=== PATIENT | female | born 1960 | race African-American/Black ===

== ENCOUNTER 2017-03-08 11:03 | Emergency (ER) | payer SELFPAY ==
[~2017-03-08] VITALS: Ht 172.7 cm; Wt 41.3 kg
[2017-03-08 12:26] VITALS: BP 143/95
== END 2017-03-08 12:36 | disposition home or self-care (01) ==
LOC: ER 11:03
DX: J20.9 Acute bronchitis, unspecified (principal)
CPT/HCPCS: 71046; 93005

== ENCOUNTER 2017-03-14 11:41 | Inpatient (IN) | payer SELFPAY ==
[~2017-03-14] VITALS: Ht 167.6 cm; Wt 44.8 kg
[2017-03-14 12:56] LABS: Basophils # (auto) 0.1 uL; Basophils % (auto) 0.6 % (0.0-2.0); Eosinophils # (auto) 0 uL; Eosinophils % (auto) 0.4 % (0.0-7.0); Hematocrit 42.8 % (36.0-46.0); Hemoglobin 14.2 g/dL (12.2-16.2); Lymphocytes # (auto) 0.8 uL; Lymphocytes % (auto) 7.3 % (10.0-50.0); Mean Corpuscular Hemoglobin 29.8 pg (28.0-32.0); Mean Corpuscular Hgb Conc. 33.2 g/dL (32.0-36.0); Mean Corpuscular Volume 89.6 fL (80.0-100.0); Monocytes # (auto) 0.5 uL; Monocytes % (auto) 4.4 % (0.0-12.0); Neutrophils # (auto) 9.5 uL; Neutrophils % (auto) 87.3 % (37.0-80.0); Nucleated Red Blood Cells % 0.1 %; Platelet Count (auto) 380 10^3/uL (140-450); Red Blood Cells 4.78 10^6/uL (4.0-5.20); Red Cell Distribution Width 12.7 % (11.8-14.3); White Blood Cell 10.9 10^3/uL (4.4-10.8)
[2017-03-14 13:34] LABS: Albumin 2.8 g/dL (3.4-5.0); BUN/Creatinine Ratio 13.9; Bilirubin, Total 0.3 mg/dL (0.2-1.0); Calcium 9.1 mg/dL (8.5-10.1); Potassium 3.4 mmol/L (3.5-5.1); Total Protein 7.7 g/dL (6.4-8.2)
[2017-03-14] MEDS ORDERED: SODIUM CHLORIDE 0.9% 1,000 ML IV ONE (15:07)
[2017-03-14] MEDS ORDERED: InsuLIN REG 1unit/0.01ml Soln (100units/ml) IV ONE (15:15)
[2017-03-14] MEDS: SODIUM CHLORIDE 0.9% 1,000 ML IV SCH ×2 (15:15→23:24)
[2017-03-14 16:07] LABS: Urine Bacteria NONE SEEN /hpf (None Seen); Urine Blood Negative /uL (Negative); Urine Specific Gravity 1.037 (1.001-1.035); Urine WBC 6 /hpf (0 - 5)
[2017-03-14] MEDS ORDERED: DEXTROSE (50%) 50ML SYRG IV PRN (16:45)
[2017-03-14] MEDS ORDERED: NITROGLYCERIN 0.4 MG SL TAB SL PRN (16:45)
[2017-03-14] MEDS ORDERED: LORazepam 0.5 MG TAB PO PRN (16:45)
[2017-03-14] MEDS ORDERED: HYDROcodone-ACET 5/325MG TAB PO PRN (16:45)
[2017-03-14] MEDS ORDERED: cefTRIAXone 1GM/10ml IVPUSH 10 ML IV ONE (16:45)
[2017-03-14] MEDS ORDERED: MORPHINE SULF INJ 2 MG/ML SYRINGE 1ML IV PRN ×2 (16:45)
[2017-03-14] MEDS ORDERED: PROMETHAZINE HCL 25 MG/ML 1ML IV PRN (16:45)
[2017-03-14] MEDS ORDERED: ACETAMINOPHEN 500 MG TAB PO PRN (16:45)
[2017-03-14] MEDS ORDERED: TEMAZEPAM 15 MG CAP PO PRN (16:45)
[2017-03-14 17:40] LABS: Alcohol, Urine < 3.0 mg/dL (0-5); Amphetamine Screen, Urine NEGATIVE (NEGATIVE); Barbiturate Scree,Urine NEGATIVE (NEGATIVE); Benzodiazephine Screen, Urine NEGATIVE (NEGATIVE); Cannabinoid Screen, Urine NEGATIVE (NEGATIVE); Cocaine Screen, Urine NEGATIVE (NEGATIVE); Opiate Scree,Urine NEGATIVE (NEGATIVE); Phencyclidine Screen, Urine NEGATIVE (NEGATIVE)
[2017-03-14] MEDS ORDERED: LABETALOL HCL 5 MG/ML ML 20ML VIAL IV PRN (18:00)
[2017-03-14] MEDS ORDERED: METOPROLOL TARTRATE 25 MG TAB PO ONE (18:00)
[2017-03-14 19:00] LABS: Amylase 56 U/L (25-115); Lipase 196 U/L (73-393)
[2017-03-14] MEDS: LABETALOL HCL 5 MG/ML ML 20ML VIAL IV PRN (19:48)
[2017-03-14] MEDS: ACCU-CHEK COMFORT CURVE STRIP VI SCH (20:00)
[2017-03-14] MEDS: InsuLIN REG 1unit/0.01ml Soln (100units/ml) SC SCH (20:00)
[2017-03-14 21:19] VITALS: BP 183/104
[2017-03-14] MEDS ORDERED: METOPROLOL TARTRATE 25 MG TAB PO SCH (22:00)
[2017-03-14] MEDS: METOPROLOL TARTRATE 25 MG TAB PO SCH (22:24)
[2017-03-14 22:38] VITALS: BP 183/104
[2017-03-15] VITALS (7 sets, daily range): BP systolic 147–162; BP diastolic 80–86
[2017-03-15] MEDS: LABETALOL HCL 5 MG/ML ML 20ML VIAL IV PRN ×2 (01:03→04:31)
[2017-03-15] MEDS: ACCU-CHEK COMFORT CURVE STRIP VI SCH ×5 (04:00→17:16)
[2017-03-15] MEDS: InsuLIN REG 1unit/0.01ml Soln (100units/ml) SC SCH ×5 (04:00→17:24)
[2017-03-15] MEDS: SODIUM CHLORIDE 0.9% 1,000 ML IV SCH ×3 (06:04→19:24)
[2017-03-15 06:29] LABS: Basophils # (auto) 0 uL; Basophils % (auto) 0.5 % (0.0-2.0); Eosinophils # (auto) 0.1 uL; Eosinophils % (auto) 1.3 % (0.0-7.0); Hematocrit 34.4 % (36.0-46.0); Hemoglobin 11.8 g/dL (12.2-16.2); Lymphocytes # (auto) 2.2 uL; Lymphocytes % (auto) 21.4 % (10.0-50.0); Mean Corpuscular Hemoglobin 29.6 pg (28.0-32.0); Mean Corpuscular Hgb Conc. 34.2 g/dL (32.0-36.0); Mean Corpuscular Volume 86.5 fL (80.0-100.0); Monocytes # (auto) 0.7 uL; Monocytes % (auto) 7.2 % (0.0-12.0); Neutrophils % (auto) 69.6 % (37.0-80.0); Platelet Count (auto) 336 10^3/uL (140-450); Red Blood Cells 3.98 10^6/uL (4.0-5.20); Red Cell Distribution Width 12.3 % (11.8-14.3)
[2017-03-15 06:43] LABS: Albumin 2.3 g/dL (3.4-5.0); BUN/Creatinine Ratio 22.2; Calcium 8.1 mg/dL (8.5-10.1)
[2017-03-15 06:46] LABS: Bilirubin, Total 0.3 mg/dL (0.2-1.0); Total Protein 6.2 g/dL (6.4-8.2)
[2017-03-15 06:57] LABS: Potassium 2.7 mmol/L (3.5-5.1)
[2017-03-15] MEDS ORDERED: POTASSIUM CHLORIDE 20 MEQ, LIDOCAINE 1% (LOCAL ANESTH.) 2 ML in SODIUM CHL 0.9% 100 ML IV ONE (07:30)
[2017-03-15] MEDS ORDERED: D5W 5% IV ONE (09:00)
[2017-03-15] MEDS ORDERED: cefTRIAXone 1GM/10ml IVPUSH 10 ML IV SCH (09:00)
[2017-03-15] MEDS ORDERED: LIDOCAINE 1% IV ONE (09:00)
[2017-03-15] MEDS ORDERED: POTASSIUM CHLORIDE IV ONE (09:00)
[2017-03-15] MEDS: METOPROLOL TARTRATE 25 MG TAB PO SCH (09:18)
[2017-03-15] MEDS ORDERED: PANTOPRAZOLE 40 MG TAB PO SCH (10:00)
[2017-03-15] MEDS ORDERED: amLODIPine BESYLATE 5 MG TAB PO SCH (10:00)
[2017-03-15] MEDS ORDERED: ATORVASTATIN 20 MG TAB PO SCH (11:00)
[2017-03-15] MEDS ORDERED: ASPirin 81 mg TAB PO SCH (11:00)
[2017-03-15] MEDS ORDERED: amLODIPine BESYLATE 5 MG TAB PO ONE (11:15)
[2017-03-15] MEDS ORDERED: POTASSIUM CHL 20 Meq TABLET PO ONE (11:15)
[2017-03-15 13:20] LABS: Albumin 2.3 g/dL (3.4-5.0); BUN/Creatinine Ratio 15.4; Bilirubin, Total 0.2 mg/dL (0.2-1.0); Calcium 7.9 mg/dL (8.5-10.1); Potassium 3.1 mmol/L (3.5-5.1); Total Protein 6.3 g/dL (6.4-8.2)
== END 2017-03-15 18:50 | disposition home or self-care (01) | DRG 638 ==
LOC: ER 11:41 → TELE 11:42 → TELE-WESTW 21:13
PROVIDERS: ADMIT Internal Medicine; ATTEND Internal Medicine
DX: E11.65 Type 2 diabetes mellitus with hyperglycemia (principal); N39.0 Urinary tract infection, site not specified; E88.09 Other disorders of plasma-protein metabolism, not elsewhere classified; E87.1 Hypo-osmolality and hyponatremia; R07.89 Other chest pain; E86.0 Dehydration; E87.6 Hypokalemia; I10 Essential (primary) hypertension; Z79.82 Long term (current) use of aspirin; Z79.899 Other long term (current) drug therapy; Z82.49 Family history of ischemic heart disease and other diseases of the circulatory system; Z83.3 Family history of diabetes mellitus; Z91.19 Patient's noncompliance with other medical treatment and regimen
CPT/HCPCS: 36415; 71046; 74176; 76705; 80053; 80061; 80307; 81001; 82150; 82550; 82962; 83036; 83690; 84132; 84443; 84484; 85025; 85379; 85652; 86141; 87086; 93005; 94761; 96361; 96374; 96375; J1815; J2001